=== PATIENT | male | born 1965 | race Caucasian/White ===

== ENCOUNTER 2018-10-10 07:23 | Day surgery (SDC) | payer OTHER ==
[~2018-10-10] VITALS: Ht 170.2 cm; Wt 75.5 kg
[2018-10-10] MEDS ORDERED: LOSA50 PO (07:49)
[2018-10-10] MEDS ORDERED: CHOL10002 PO (07:50)
[2018-10-10] MEDS ORDERED: CITA10S PO (07:50)
--- NOTE | 2018-10-10 08:25 | NUR ---
10/10/[address] AWARE PT EXHIBITS R SIDED WHEEZES ANTERIORLY IN PREOP. PT HX OF LONG TIME SMOKER
== END 2018-10-10 09:38 | disposition home or self-care (01) ==
LOC: ORSCSDS 07:23
PROVIDERS: Surgery
PROC: 0DBM8ZX Excision of Descending Colon, Via Natural or Artificial Opening Endoscopic, Diagnostic (ICD-10-PCS; principal; 2018-10-10 08:45)
PROC: 0DBL8ZX Excision of Transverse Colon, Via Natural or Artificial Opening Endoscopic, Diagnostic (ICD-10-PCS; principal; 2018-10-10 08:45)
PROC: 0DBP8ZX Excision of Rectum, Via Natural or Artificial Opening Endoscopic, Diagnostic (ICD-10-PCS; principal; 2018-10-10 08:45)
DX: Z12.11 Encounter for screening for malignant neoplasm of colon (principal); D12.3 Benign neoplasm of transverse colon; D12.4 Benign neoplasm of descending colon; K62.1 Rectal polyp; Z87.891 Personal history of nicotine dependence; I10 Essential (primary) hypertension; E78.5 Hyperlipidemia, unspecified; F41.9 Anxiety disorder, unspecified; N40.0 Benign prostatic hyperplasia without lower urinary tract symptoms; Z79.899 Other long term (current) drug therapy
CPT/HCPCS: 88305; J2704; J7120

== ENCOUNTER 2021-01-10 10:50 | Day surgery (SDC) | payer OTHER ==
[~2021-01-10] VITALS: Ht 170.2 cm; Wt 27.5 kg
[~2021-01-10 10:50] MED LIST: CHOL10002 PO; CITA10S PO; LOSA50 PO
[2021-01-10] MEDS ORDERED: FISH OIL 1,2001 EAC7 PO (11:28)
== END 2021-01-10 14:00 | disposition home or self-care (01) ==
LOC: ORSCSDS 10:50
PROVIDERS: Orthopaedic Surgery
PROC: 01N50ZZ Release Median Nerve, Open Approach (ICD-10-PCS; principal; 2021-01-10 12:00)
PROC: 0LN70ZZ Release Right Hand Tendon, Open Approach (ICD-10-PCS; principal; 2021-01-10 12:00)
DX: G56.01 Carpal tunnel syndrome, right upper limb (principal); M65.331 Trigger finger, right middle finger; I10 Essential (primary) hypertension; Z87.891 Personal history of nicotine dependence; F41.8 Other specified anxiety disorders; Z79.899 Other long term (current) drug therapy
CPT/HCPCS: J0690; J1885; J2250; J2704; J3010; J7120

== ENCOUNTER 2021-08-01 11:49 | Day surgery (SDC) | payer OTHER ==
[~2021-08-01] VITALS: Ht 170.2 cm; Wt 82.8 kg
[~2021-08-01 11:49] MED LIST changes: +FISH OIL 1,2001 EAC7 PO
--- NOTE | 2021-08-01 13:23 | NUR ---
08/01/21 1323 MEILY MERCADO PT ON 15 L O2 PER FACE TENT. ORAL AIRWAY STILL IN PLACE. NON-RESPONSIVE AT THIS TIME. WILL CONTINUE TO MONITOR IN PACU
== END 2021-08-01 14:20 | disposition home or self-care (01) ==
LOC: ORSCSDS 11:49
PROVIDERS: Orthopaedic Surgery
PROC: 01N50ZZ Release Median Nerve, Open Approach (ICD-10-PCS; principal; 2021-08-01 13:00)
PROC: 0LN80ZZ Release Left Hand Tendon, Open Approach (ICD-10-PCS; principal; 2021-08-01 13:00)
DX: G56.02 Carpal tunnel syndrome, left upper limb (principal); M65.322 Trigger finger, left index finger; I10 Essential (primary) hypertension; E78.5 Hyperlipidemia, unspecified; F41.9 Anxiety disorder, unspecified; Z79.899 Other long term (current) drug therapy; Z87.891 Personal history of nicotine dependence
CPT/HCPCS: J0171; J0690; J1100; J1885; J2250; J2370; J2405; J2704; J3010; J7120

== ENCOUNTER 2022-01-21 16:48 | Emergency (ER) | payer OTHER ==
[~2022-01-21] VITALS: Ht 167.6 cm; Wt 83.0 kg
[2022-01-21 17:30] LABS: BASOPHILS ABSOLUTE AUTO 0.06 K/mm3 (0.00-0.23); BASOPHILS PERCENT AUTO 1 % (0-2); EOSINOPHILS ABSOLUTE AUTO 0.05 K/mm3 (0.00-0.68); EOSINOPHILS PERCENT AUTO 1 % (0-6); Hematocrit 48.5 % (37.0-53.0); Hemoglobin 16.3 g/dL (13.5-17.5); IMMATURE GRAN ABSOLUTE AUTO 0.04 K/mm3 (0.00-0.10); IMMATURE GRAN PERCENT AUTO 0 % (0-1); LYMPHOCYTES ABSOLUTE AUTO 1.66 K/mm3 (0.84-5.20); LYMPHOCYTES PERCENT AUTO 16 % (21-46); MONOCYTES ABSOLUTE AUTO 0.96 K/mm3 (0.16-1.47); MONOCYTES PERCENT AUTO 9 % (4-13); Mean Corpuscular HGB 29.5 pg (26.0-34.0); Mean Corpuscular HGB Conc 33.6 g/dL (31.5-36.5); Mean Corpuscular Volume 88 fL (80-100); Mean Platelet Volume 9.7 fL (9.1-12.4); NEUTROPHILS ABSOLUTE AUTO 7.81 K/mm3 (1.96-9.15); NEUTROPHILS PERCENT AUTO 74 % (41-73); Platelet Count 342 K/mm3 (150-400); RDW Coefficient Variation 12.2 % (11.7-14.2); RDW Standard Deviation 39.4 fL (35.1-46.3); Red Blood Cell Count 5.53 M/mm3 (4.30-5.90); White Blood Cell Count 10.58 K/mm3 (4.00-11.30)
[2022-01-21 17:40] LABS: Albumin, Blood 3.9 g/dL (3.4-5.0); Albumin/Globulin Ratio 1.1 (0.8-1.8); Bilirubin, Total 0.3 mg/dL (0.1-1.0); Bun/Creatinine Ratio 14.4 (12.0-20.0); Calcium, Blood 9.1 mg/dL (8.5-10.1); Creatinine, Blood 1.39 mg/dL (0.60-1.20); Globulin, Blood 3.4 g/dL (2.2-4.0); Total Protein, Blood 7.3 g/dL (6.4-8.2)
[2022-01-21 19:30] LABS: Source, Urine Clean Catch
[2022-01-21 20:02] LABS: Appearance, Urine Clear (Clear); Bilirubin, Urine Neg (Neg); Blood, Urine 2+ (Neg); Color, Urine Yellow (P-Yellow); Glucose Qualitative, Urine Neg (Neg); Ketones, Urine Neg (Neg); Leukocyte Esterase, Urine 1+ (Neg); Nitrite, Urine Neg (Neg); Protein, Urine Neg (Neg); Urobilinogen, Urine NORM (Normal)
[2022-01-21 20:16] LABS: Mucus Light (0-Heavy)
[2022-01-21 20:17] LABS: Bacteria Many /hpf; Red Blood Cells, Urine 0-2 /hpf (0-2); Squamous Epithelial Cells Rare /hpf (Few); White Blood Cells, Urine 0-2 /hpf (0-5)
[2022-01-21 20:18] LABS: Amorphous Mod (0-Heavy); Hyaline Casts 0-2 /lpf (0-2)
[2022-01-21] MEDS ORDERED: SULTRIDS PO (22:19)
== END 2022-01-21 23:22 | disposition home or self-care (01) ==
LOC: ER 16:48
PROVIDERS: Physician Assistant
DX: N41.9 Inflammatory disease of prostate, unspecified (principal); I10 Essential (primary) hypertension; M54.50 Low back pain, unspecified; Z87.891 Personal history of nicotine dependence
CPT/HCPCS: 36415; 76870; 80053; 81001; 85025; 87086; A9270; J1885